=== PATIENT | female | born 1950 | race Caucasian/White ===

== ENCOUNTER 2019-05-15 05:31 | Emergency (ER) | payer OTHER ==
[2019-05-15] MEDS ORDERED: FAMOTIDINE 20 MG/50 ML IVPB 20 MG/50 ML MG IVPB ONE (05:54)
[2019-05-15] MEDS ORDERED: ONDANSETRON 4 MG/2 ML VIAL IVPB ONE (05:54)
[2019-05-15] MEDS ORDERED: ACETAMINOPHEN 1000 MG/100 ML VIAL (NON FORMULARY) IVPB ONE (05:54)
[2019-05-15] MEDS ORDERED: SODIUM CHLORIDE 1,000 ML IV STA (05:54)
[2019-05-15 06:01] VITALS: BMI 24.1
--- NOTE | 2019-05-15 06:02 | PDOC ---
History of Present Illness - General Stated Complaint: BACK PAIN History Source: Patient, Family (Granddaughter) Exam Limitations: No Limitations - History of Present Illness Initial Comments: 05/15/19 05:56 68yo F with PMH of IDDM, HTN, Cholecystectomy 2016, Pancreatitis presenting to ED with complaints of back pain and vomiting that woke her up from sleep about 30m ago. Pt states she was feeling fine but then developed pain in her back radiating to the abdomen and vomited for 30m. She said she had rice and beans for dinner and that is what she threw up. No one else in the household is sick. She checked her blood sugar which was in the 300s. She feels a burning sensation in her abdomen up to her throat. Pain is on the sides of her back radiating to the pelvis. Endorses loose stools. Denies fevers, chills, chest pain, sob, dysuria, frequency, bloody stools, rash, recent travel, weakness, numbness/tingling, incontinence, urinary retention. PMD: Aguayo PMH: see hpi PSH: see hpi Meds: Levemir?, Allergies: Naproxen Past History - Past Medical History Allergies/Adverse Reactions: Allergies Allergy/AdvReac Type Severity Reaction Status Date / Time naproxen [From Naprosyn] Allergy Verified 05/15/19 06:01 Home Medications: Ambulatory Orders Alprazolam [Xanax] 2 mg PO DAILY 05/15/19 Famotidine [Pepcid -] 20 mg PO BID #14 tablet 05/15/19 Furosemide 20 mg PO DAILY 05/15/19 Insulin (Levemir) [Levemir Vial] 30 unit SQ DAILY 05/15/19 Nifedipine [Nifedipine ER] 60 mg PO DAILY 05/15/19 *Physical Exam - Physical Exam General Appearance: Yes: Nourished, Appropriately Dressed. No: Apparent Distress HEENT: positive: EOMI, THEE, Normal ENT Inspection, Other (halolithosis) Neck: positive: Trachea midline, Supple. negative: Lymphadenopathy (R), Lymphadenopathy (L) Respiratory/Chest: positive: Lungs Clear, Normal Breath Sounds. negative: Crackles, Rales, Rhonchi, Stridor, Wheezing Cardiovascular: positive: Regular Rhythm, Regular Rate, S1, S2. negative: Edema , JVD, Murmur Vascular Pulses: Dorsalis-Pedis (R): 2+, Doralis-Pedis (L): 2+ Gastrointestinal/Abdominal: positive: Normal Bowel Sounds, Soft. negative: Tender, Protuberent, Distended, Guarding, Rebound, Tenderness, Spleenomegaly Musculoskeletal: negative: CVA Tenderness, Vertebral Tenderness Extremity: positive: Normal Capillary Refill. negative: Delayed Capillary Refill, Pedal Edema, Swelling, Calf Tenderness Integumentary: positive: Normal Color, Dry, Warm Neurologic: positive: manager legal II-XII NML intact, Fully Oriented, Alert, Normal Mood/ Affect, Normal Response, Motor Strength 5/5, Other (normal gait) ED Treatment Course - LABORATORY CBC & Chemistry Diagram: 05/15/19 06:10 05/15/19 06:10 Medical Decision Making - Medical Decision Making 05/15/19 06:04 68yo F presenting with back/abdominal pain and vomiting. ddx includes but not limited to atypical acs, gerd/gastritis, colitis, kidney stones, aaa, malignancy, uti, cystitis, appendicitis, sbo, pancreatitis, hhs/dka low suspicion for cauda equina/cord compression given presentation and no vertebral tenderness or neurological symptoms. Back pain is chronic. will order labs including lipase, trop, urinalysis ekg. fluids, zofran, pepcid, ofirmev. Pt not having any abdominal tenderness, does not need imaging at this time. 05/15/19 06:17 ekg: sinus bradycardia at 58bpm. pr 178, qtc 408. no alcon or depressions. no signs of acute ischemia. 05/15/19 06:49 no white count. chemistries and urine pending. pt feeling about the same with gerd like symptoms. will add maalox and viscous lidocaine. if labs normal, with benign abdominal exam, pt could be dc home with follow up. labs normal. safe for dc home. pt feeling better. will give rx for pepcid and gi f/u. discussed with pt. agrees to plan. Discharge - Discharge Information Problems reviewed: Yes Clinical Impression/Diagnosis: Vomiting Qualifiers: Vomiting type: unspecified Vomiting Intractability: non-intractable Nausea presence: with nausea Qualified Code(s): R11.2 - Nausea with vomiting, unspecified Abdominal pain Qualifiers: Abdominal location: unspecified location Qualified Code(s): R10.9 - Unspecified abdominal pain GERD (gastroesophageal reflux disease) Qualifiers: Esophagitis presence: esophagitis presence not specified Qualified Code(s): K21.9 - Gastro-esophageal reflux disease without esophagitis - Additional Discharge Information Prescriptions: Famotidine [Pepcid -] 20 mg PO BID #14 tablet - Follow up/Referral Referrals: Zaid Aguayo MD [Primary Care Provider] - Bobby Mendieta MD [Staff Physician] - - Patient Discharge Instructions Patient Printed Discharge Instructions: DI for Gastroesophageal Reflux Disease (GERD) Additional Instructions: You were seen in the emergency room today for pain and vomiting. This could be due to GERD or gastritis. I recommend that you follow up with your primary care doctor early next week regarding this ED visit. I also recommend following up with a GI doctor. Information is below. Start off with a liquid and soft diet and then progress to a regular diet. A prescription for an antacid has been sent to your pharmacy. Please take as directed. Come back to the emergency room if you continue vomiting, have worsening pain, have weakness, numbness or tingling, or if any new concerning symptom develops. Thank you - Post Discharge Activity
--- NOTE | 2019-05-15 06:15 | PDOC ---
Attending Attestation - Resident Resident Name: Tabitha Valero - ED Attending Attestation I have performed the following: I have examined & evaluated the patient, The case was reviewed & discussed with the resident, I agree w/resident's findings & plan, Exceptions are as noted - HPI HPI: 05/15/19 06:32 68F pmh DM, HTN, pancreatitis, s/p oneil 2016 here with abdominal pain, a/w nbnb vomiting that woke her from sleep. Pain is burning, epigastric radiating up to her throat. A/w bilateral lower back pain radiating down. No f/c, d/c, sick contacts, incontinence, numbness, weakness - Physicial Exam PE: 05/15/19 06:36 Agree with exam as documented by resident - Medical Decision Making 05/15/19 06:36 Likely AGE, consider pancreatitis, appy, atypical acs, nephrolithiasis, uti, pyelo f/u labs, ekg gi cocktail re-eval dispo per clinical course
[2019-05-15 06:29] LABS: BASO % 0.4 % (0-2.0); EOS % 0.6 % (0-4.5); HEMATOCRIT 35.7 % (32.4-45.2); MCH 30.7 pg (25.7-33.7); MCHC 33.5 g/dl (32.0-36.0); MEAN CELL VOLUME 91.7 fl (80-96); MONO % 4.1 % (3.8-10.2); NEUT % 78.9 % (42.8-82.8); PLATELET COUNT 171 K/MM3 (134-434); RBC 3.89 M/mm3 (3.60-5.2); RDW 13.8 % (11.6-15.6); WHITE BLOOD COUNT 6.3 K/mm3 (4.0-10.0)
[2019-05-15] MEDS ORDERED: MAG HYDROX/AL HYDROX/SIMETH 30 ML UNIT-DOSE CUP PO ONE (06:51)
[2019-05-15] MEDS ORDERED: LIDOCAINE VISCOUS 2% ORAL/TOP 20 ML UNIT-DOSE CUP MM ONE (06:51)
[2019-05-15] MEDS ORDERED: MAG HYDROX/AL HYDROX/SIMETH 30 ML UNIT-DOSE CUP ONE (06:52)
[2019-05-15] MEDS ORDERED: LIDOCAINE VISCOUS 2% ORAL/TOP 20 ML UNIT-DOSE CUP ONE (06:52)
[2019-05-15 06:55] LABS: PH,URINE 6.5 (5.0-8.0); URINE APPEARANCE CLEAR; URINE BILIRUBIN NEGATIVE (NEGATIVE); URINE COLOR YELLOW; URINE GLUCOSE (UA) 3+ (NEGATIVE); URINE KETONE NEGATIVE (NEGATIVE); URINE LEUK ESTERASE NEGATIVE (NEGATIVE); URINE NITRITE NEGATIVE (NEGATIVE); URINE PROTEIN NEGATIVE (NEGATIVE); URINE UROBILINOGEN 0.2 mg/dL (0.2-1.0)
[2019-05-15 06:58] LABS: ALBUMIN 3.7 g/dl (3.4-5.0); ALK PHOS 71 U/L (45-117); ANION GAP 6 MMOL/L (8-16); BILIRUBIN,TOTAL 0.3 mg/dL (0.2-1); BLOOD UREA NITROGEN 29.5 mg/dL (7-18); CALCIUM 8.6 mg/dL (8.5-10.1); CHLORIDE 104 mmol/L (98-107); CO2 29 mmol/L (21-32); GLUCOSE,RANDOM 250 mg/dL (74-106); LIPASE 374 U/L (73-393); POTASSIUM 4.3 mmol/L (3.5-5.1); SGOT/AST 12 U/L (15-37); SGPT/ALT 22 U/L (13-61); SODIUM 138 mmol/L (136-145); TOT PROT 6.6 g/dl (6.4-8.2)
[2019-05-15 07:20] VITALS: BP 128/53; PULSE 56; TEMP 97.6
--- NOTE | 2019-05-15 14:05 | EKG ---
Test Reason : Blood Pressure : / mmHG Vent. Rate : 058 BPM Atrial Rate : 058 BPM P-R Int : 178 ms QRS Dur : 076 ms QT Int : 416 ms P-R-T Axes : 014 037 045 degrees QTc Int : 408 ms SINUS BRADYCARDIA LOW VOLTAGE QRS SEPTAL INFARCT , AGE UNDETERMINED ABNORMAL ECG NO PREVIOUS ECGS AVAILABLE Confirmed by KATJA HUNTER MD ([id number]) on 05/15/2019 2:05:04 PM Referred By: Confirmed By:KATJA HUNTER MD
== END 2019-05-15 07:32 | disposition home or self-care (01) ==
LOC: JER 05:31
PROC: 3E033GC Introduction of Other Therapeutic Substance into Peripheral Vein, Percutaneous Approach (ICD-10-PCS; principal; 2019-05-15)
PROC: 3E033GC Introduction of Other Therapeutic Substance into Peripheral Vein, Percutaneous Approach (ICD-10-PCS; 2019-05-15)
PROC: 3E033NZ Introduction of Analgesics, Hypnotics, Sedatives into Peripheral Vein, Percutaneous Approach (ICD-10-PCS; 2019-05-15)
DX: K21.9 Gastro-esophageal reflux disease without esophagitis (principal); E11.9 Type 2 diabetes mellitus without complications; Z79.4 Long term (current) use of insulin; I10 Essential (primary) hypertension; K86.9 Disease of pancreas, unspecified; Z88.8 Allergy status to other drugs, medicaments and biological substances
CPT/HCPCS: 36415; 80053; 81003; 83690; 84484; 85025; 87086; 93005; 93010; 96365; 96375; 99284-25; J0131; J7030